=== PATIENT | male | born 1965 | race Caucasian/White ===

== ENCOUNTER 2020-12-16 17:47 | Outpatient (CLI) | payer BC | END 2020-12-16 17:48 | disposition EMS.NT | LOC: EMS 17:47 | DX: S01.81XA Laceration without foreign body of other part of head, initial encounter (principal); W18.09XA Striking against other object with subsequent fall, initial encounter; Y93.55 Activity, bike riding; Y92.89 Other specified places as the place of occurrence of the external cause ==

== ENCOUNTER 2020-12-16 19:13 | Emergency (ER) | payer BC ==
[2020-12-16 19:21] VITALS: BP 137/83
[2020-12-16] MEDS ORDERED: BUFFERED LIDOCAINE 10 ML SYRINGE SUBQ STA (19:32)
[2020-12-16] MEDS ORDERED: BACITRACIN ZINC OINT 1 PACKET TOP STA (19:32)
[2020-12-16] MEDS ORDERED: TETANUS/DIPHTHERIA/PERTUSSIS 0.5 ML SYRINGE IM ONE (19:32)
[2020-12-16] MEDS ORDERED: KETOROLAC 60 MG/2 ML VIAL IM STA (19:34)
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
== END 2020-12-16 20:53 | disposition home or self-care (01) ==
LOC: ED 19:13
DX: S01.81XA Laceration without foreign body of other part of head, initial encounter (principal); V17.0XXA Pedal cycle driver injured in collision with fixed or stationary object in nontraffic accident, initial encounter; Y93.55 Activity, bike riding; Y92.821 Forest as the place of occurrence of the external cause; Z23 Encounter for immunization; Z85.850 Personal history of malignant neoplasm of thyroid
CPT/HCPCS: 12013; 90471; 90715; 96372; 99282; 99283; A9270